=== PATIENT | female | born 1990 | race Caucasian/White ===

== ENCOUNTER 2020-08-14 18:47 | Inpatient (IN) | payer BC ==
[2020-08-14] MEDS ORDERED: Calcium Carbonate 500 MG Tab.Chew PO PRN (19:17)
[2020-08-14] MEDS ORDERED: Nalbuphine 10 MG/1 ML Vial IVPUSH PRN (19:17)
[2020-08-14] MEDS ORDERED: Sodium Chloride 0.9% 10 ML Syringe FLUSH PRN (19:17)
[2020-08-14] MEDS ORDERED: Lidocaine 1% 50 ML MDV INJECT ONE (19:17)
[2020-08-14] MEDS ORDERED: Ondansetron 4 MG/2 ML SDV IVPUSH PRN (19:17)
[2020-08-14] MEDS ORDERED: Sodium Chloride 0.9% 100 ML ONE (19:25)
[2020-08-14] MEDS ORDERED: Ampicillin 2 GM AdvVial IV ONE (19:25)
[2020-08-14] MEDS ORDERED: Oxytocin/Lactated Ringers 10 UNIT/1,000 ML BAG IV SCH ×2 (19:30)
[2020-08-14] MEDS ORDERED: fentaNYL 100 MCG/2 ML SDV EPIDUR PRN (19:48)
[2020-08-14] MEDS ORDERED: Bupivacaine/fentaNYL/NS 100 ML Bag EPIDUR PRN (19:48)
[2020-08-14] MEDS ORDERED: ePHEDrine 50 MG/ML SDV IVPUSH PRN (19:48)
[2020-08-14] MEDS ORDERED: diphenhydrAMINE 50 MG/ML SDV IVPUSH PRN (19:48)
[2020-08-14] MEDS ORDERED: Ampicillin 2 GM in Sodium Chloride 0.9% 100 ML IV ONE (20:00)
[2020-08-14] MEDS: Lactated Ringers 1,000 ML IV SCH ×4 (21:28→22:09)
--- NOTE | 2020-08-14 22:02 | PCM.PREANE ---
Preanesthetic Assessment - Procedure Proposed Procedure: epidural - Anesthesia/Transfusion/Family Hx Anesthesia History: Prior Anesthesia Without Reaction Family History of Anesthesia Reaction: No Transfusion History: Unknown - Review of Systems General: Fatigue, Malaise Pulmonary: No Symptoms Cardiovascular: No Symptoms Gastrointestinal: Abdominal Pain (labor) Neurological: No Symptoms Other: Reports: None - Physical Assessment Height: 1.7 m Weight: 81.76 kg ASA Class: 2 Mental Status: Alert & Oriented x3 Airway Class: Mallampati = 2 Dentition: Reports: Normal Dentition Thyro-Mental Finger Breadths: 3 Mouth Opening Finger Breadths: 3 ROM/Head Extension: Full Lungs: Clear to Auscultation, Normal Respiratory Effort Cardiovascular: Regular Rate, Regular Rhythm - Lab Values: Laboratory Last Values WBC 16.85 K/mm3 (3.98-10.04) H 08/14/20 19:30 RBC 4.67 M/mm3 (3.98-5.22) 08/14/20 19:30 Hgb 13.6 gm/dl (11.2-15.7) 08/14/20 19:30 Hct 40.6 % (34.1-44.9) 08/14/20 19:30 MCV 86.9 fl (79.4-94.8) 08/14/20 19:30 MCH 29.1 pg (25.6-32.2) 08/14/20 19:30 MCHC 33.5 g/dl (32.2-35.5) 08/14/20 19:30 RDW Std Deviation 47.8 fL (36.4-46.3) H 08/14/20 19:30 Plt Count 273 K/mm3 (182-369) 08/14/20 19:30 MPV 10.7 fl (9.4-12.3) 08/14/20 19:30 Neut % (Auto) 74.4 % (34.0-71.1) H 08/14/20 19:30 Lymph % (Auto) 17.2 % (19.3-51.7) L 08/14/20 19:30 [place] % (Auto) 7.8 % (4.7-12.5) 08/14/20 19:30 Eos % (Auto) 0.5 (0.7-5.8) L 08/14/20 19:30 Baso % (Auto) 0.1 % (0.1-1.2) 08/14/20 19:30 Neut # (Auto) 12.53 K/mm3 (1.56-6.13) H 08/14/20 19:30 Lymph # (Auto) 2.90 K/mm3 (1.18-3.74) 08/14/20 19:30 [place] # (Auto) 1.31 K/mm3 (0.24-0.36) H 08/14/20 19:30 Eos # (Auto) 0.09 K/mm3 (0.04-0.36) 08/14/20 19:30 Baso # (Auto) 0.02 K/mm3 (0.01-0.08) 08/14/20 19:30 Manual Slide Review Normal smear 08/14/20 19:30 - Allergies Allergies/Adverse Reactions: Allergies Allergy/AdvReac Type Severity Reaction Status Date / Time No Known Allergies Allergy Verified 08/14/20 19:39 - Anesthesia Plan Pre-Op Medication Ordered: None - Acknowledgements Anesthesia Type Planned: Epidural Pt an Appropriate Candidate for the Planned Anesthesia: Yes Alternatives and Risks of Anesthesia Discussed w Pt/Guardian: Yes Pt/Guardian Understands and Agrees with Anesthesia Plan: Yes PreAnesthesia Questionnaire Gastrointestinal History: Reports: GERD - CURRENT (IN HOUSE) MEDS Current Meds: Current Medications Calcium Carbonate/Glycine (Calcium Carbonate 500 Mg Tab.Chew) 1,000 mg PO Q2H PRN PRN Reason: Indigestion Diphenhydramine HCl (Diphenhydramine 50 Mg/Ml Sdv) 25 mg IVPUSH Q6H PRN PRN Reason: pruritis Ephedrine Sulfate (Ephedrine 50 Mg/Ml Sdv) 5 mg IVPUSH ASDIRECTED PRN PRN Reason: Hypotension Fentanyl (Fentanyl 100 Mcg/2 Ml Sdv) 100 mcg EPIDUR Q3H PRN PRN Reason: Pain Last Admin: 08/14/20 21:45 Dose: 100 mcg Documented by: Fentanyl/Bupivacaine HCl (Bupivacaine/Fentanyl/Ns 100 Ml Bag) 100 ml EPIDUR ASDIRECTED PRN PRN Reason: Pain Last Admin: 08/14/20 21:45 Dose: 100 ml Documented by: Lactated Ringer's (Ringers, Lactated) 1,000 mls @ 100 mls/hr IV ASDIRECTED HAIDER Last Admin: 08/14/20 21:30 Dose: 100 mls/hr Documented by: Ampicillin Sodium 1 gm/ Sodium (Chloride) 100 mls @ 200 mls/hr IV Q4H HAIDER Oxytocin/Lactated Ringer's (Pitocin In Lr 10 Units/1,000 Ml) 10 unit in 1,000 mls @ 12 mls/hr IV TITRATE HAIDER; Protocol Oxytocin/Lactated Ringer's (Pitocin In Lr 10 Units/1,000 Ml) 10 unit in 1,000 mls @ 500 mls/hr IV .CONTINUOUS HAIDER Nalbuphine HCl (Nalbuphine 10 Mg/1 Ml Vial) 10 mg IVPUSH Q2H PRN PRN Reason: Pain Ondansetron HCl (Ondansetron 4 Mg/2 Ml Sdv) 4 mg IVPUSH Q4H PRN PRN Reason: Nausea/Vomiting Sodium Chloride (Sodium Chloride 0.9% 10 Ml Syringe) 10 ml FLUSH ASDIRECTED PRN PRN Reason: Keep Vein Open Discontinued Medications Ampicillin Sodium (Ampicillin 2 Gm Advvial) Confirm Administered Dose 2 gm IV .STK-MED ONE Stop: 08/14/20 19:26 Ampicillin Sodium 2 gm/ Sodium (Chloride) 100 mls @ 200 mls/hr IV ONETIME ONE Stop: 08/14/20 20:29 Last Admin: 08/14/20 21:31 Dose: 200 mls/hr Documented by: Sodium Chloride (Normal Saline) Confirm Administered Dose 100 mls @ as directed .ROUTE .STK-MED ONE Stop: 08/14/20 19:26 Lidocaine HCl (Lidocaine 1% 50 Ml Mdv) 20 ml INJECT ONETIME ONE Stop: 08/14/20 19:18
--- NOTE | 2020-08-14 22:08 | PCM.LDHP ---
L&D History of Present Illness - General Date of Service: 08/14/20 Admit Problem/Dx: Patient Status Order with Admit Dx/Problem 08/14/20 19:03 Patient Status [ADT] Routine 08/14/20 19:18 Patient Status [ADT] Routine Admission Diagnosis/Problem Admission Diagnosis/Problem Active labor - History of Present Illness Introduction:: 30 year old here in active labor. Presented with painful contractions. Cervix 4-[address] Hong complicated by GBS positive, COVID in March. Pain Score: 10 - Related Data Allergies/Adverse Reactions: Allergies Allergy/AdvReac Type Severity Reaction Status Date / Time No Known Allergies Allergy Verified 08/14/20 19:39 Past Medical History Gastrointestinal History: Reports: GERD H&P Review of Systems - Review of Systems: Review Of Systems: See Below General: Reports: No Symptoms HEENT: Reports: No Symptoms Pulmonary: Reports: No Symptoms Cardiovascular: Reports: No Symptoms Gastrointestinal: Reports: No Symptoms Genitourinary: Reports: No Symptoms Musculoskeletal: Reports: No Symptoms Skin: Reports: No Symptoms Psychiatric: Reports: No Symptoms Neurological: Reports: No Symptoms Hematologic/Lymphatic: Reports: No Symptoms Immunologic: Reports: No Symptoms L&D Exam - Exam Exam: See Below - Vital Signs Weight: 81.76 kg - OB Specific Contraction Intensity: Moderate Movement: Active Heart Tones: Present Heart Rate (FHR) Variability: Moderate (6-25 bmp) Presentation: Vertex - Celeste Score Celeste Score Cervix Position: Midposition Celeste Score Consistency: Medium Celeste Score Effacement: 51-70% Celeste Score Dilation: 3-4 cm Celeste Score 's Station: -2 Celeste Score Total: 7 - Exam General: Alert, Oriented HEENT: PERRLA, Conjunctiva Clear, EACs Clear, EOMI, Hearing Intact, Mucosa Moist & [place], Nares Patent, Normal Nasal Septum, Posterior Pharynx Clear, TMs Clear Neck: Supple, Trachea Midline Lungs: Clear to Auscultation, Normal Respiratory Effort Cardiovascular: Regular Rate, Regular Rhythm GI/Abdominal Exam: Normal Bowel Sounds, Soft, Non-Tender, No Organomegaly, No Distention, No Abnormal Bruit, No Mass, Pelvis Stable Rectal Exam: Normal Exam Back Exam: Normal Inspection, Full Range of Motion Extremities: Normal Inspection, Normal Range of Motion, Non-Tender, No Pedal Edema, Normal Capillary Refill Skin: Warm, Dry, Intact Neurological: Cranial Nerves Intact, Reflexes Equal Bilateral Psychiatric: Alert, Normal Affect, Normal Mood - Patient Data Lab Results Last 24 hrs: Laboratory Results - last 24 hr 08/14/20 Range/Units 19:30 WBC 16.85 H (3.98-10.04) K/mm3 RBC 4.67 (3.98-5.22) M/mm3 Hgb 13.6 (11.2-15.7) gm/dl Hct 40.6 (34.1-44.9) % MCV 86.9 (79.4-94.8) fl MCH 29.1 (25.6-32.2) pg MCHC 33.5 (32.2-35.5) g/dl RDW Std Deviation 47.8 H (36.4-46.3) fL Plt Count 273 (182-369) K/mm3 MPV 10.7 (9.4-12.3) fl Neut % (Auto) 74.4 H (34.0-71.1) % Lymph % (Auto) 17.2 L (19.3-51.7) % [place] % (Auto) 7.8 (4.7-12.5) % Eos % (Auto) 0.5 L (0.7-5.8) Baso % (Auto) 0.1 (0.1-1.2) % Neut # (Auto) 12.53 H (1.56-6.13) K/mm3 Lymph # (Auto) 2.90 (1.18-3.74) K/mm3 [place] # (Auto) 1.31 H (0.24-0.36) K/mm3 Eos # (Auto) 0.09 (0.04-0.36) K/mm3 Baso # (Auto) 0.02 (0.01-0.08) K/mm3 Manual Slide Review Normal smear Result Diagrams: 08/14/20 19:30 Problem List Initiated/Reviewed/Updated: Yes Orders Last 24hrs: Active Orders 24 hr Category Date Time Status Patient Status [ADT] Routine ADT 08/14/20 19:18 Active Activity as Tolerated [RC] PFP Care 08/14/20 19:17 Active Communication Order [RC] ASDIRECTED Care 08/14/20 19:17 Active Communication Order [RC] ASDIRECTED Care 08/14/20 19:49 Active Cooling Warming Measures [RC] ASDIRECTED Care 08/14/20 19:49 Active Heart Tones [RC] ASDIRECTED Care 08/14/20 19:18 Active Non Stress Test [RC] PER UNIT ROUTINE Care 08/14/20 19:03 Active Notify Provider [RC] ASDIRECTED Care 08/14/20 19:48 Active Notify Provider [RC] ASDIRECTED Care 08/14/20 19:49 Active Notify Provider [RC] PFP Care 08/14/20 19:17 Active Notify Provider [RC] PRN Care 08/14/20 19:17 Active Oxygen Therapy [RC] ASDIRECTED Care 08/14/20 19:49 Active Peripheral IV Care [RC] . DIRECTED Care 08/14/20 19:18 Active Pulse Oximetry [RC] ASDIRECTED Care 08/14/20 19:49 Active Pump Management, Intrathecal [RC] ASDIRECTED Care 08/14/20 19:19 Active Urinary Catheter Assessment [RC] ASDIRECTED Care 08/14/20 19:17 Active Vital Signs [RC] PER UNIT ROUTINE Care 08/14/20 19:03 Active Vital Signs [RC] Q1H Care 08/14/20 19:49 Active Regular Diet [DIET] Diet 08/14/20 Dinner Active BLOOD BANK HOLD SPECIMEN [BBK] Stat Lab 08/14/20 19:30 Received CORONAVIRUS COVID-19 ELADIA [MOLEC] Stat Lab 08/14/20 19:20 Ordered HEP C VIRUS AB [REF] Stat Lab 08/14/20 19:30 Received RAPID PLASMA REAGIN,RPR [CHEM] Stat Lab 08/14/20 19:30 Received Ampicillin 1 gm Med 08/15/20 00:00 Active Sodium Chloride 0.9% [Normal Saline] 100 ml IV Q4H Bupivacaine/fentaNYL/NS [fentaNYL/Bupivacaine/NS 2 MCG- Med 08/14/20 19:48 Active 0.125% 100 ML] 100 ml EPIDUR ASDIRECTED PRN Calcium Carbonate [Tums] Med 08/14/20 19:17 Active 1,000 mg PO Q2H PRN Lactated Ringers [Ringers, Lactated] 1,000 ml Med 08/14/20 19:30 Active IV ASDIRECTED Nalbuphine [Nubain] Med 08/14/20 19:17 Active 10 mg IVPUSH Q2H PRN Ondansetron [Zofran] Med 08/14/20 19:17 Active 4 mg IVPUSH Q4H PRN Oxytocin/Lactated Ringers [Pitocin in LR 10 Units/1,000 Med 08/14/20 19:30 Active ML] 10 unit in 1,000 ml IV .CONTINUOUS Oxytocin/Lactated Ringers [Pitocin in LR 10 Units/1,000 Med 08/14/20 19:30 Active ML] 10 unit in 1,000 ml IV TITRATE Sodium Chloride 0.9% [Saline Flush] Med 08/14/20 19:17 Active 10 ml FLUSH ASDIRECTED PRN diphenhydrAMINE [Benadryl] Med 08/14/20 19:48 Active 25 mg IVPUSH Q6H PRN ePHEDrine [ePHEDrine sulfate] Med 08/14/20 19:48 Active 5 mg IVPUSH ASDIRECTED PRN fentaNYL [Sublimaze] Med 08/14/20 19:48 Active 100 mcg EPIDUR Q3H PRN Electronic Heart Tones Ext w TOCO [WOMSER] Oth 08/14/20 19:17 Ordered Routine Electronic Heart Tones Internal [WOMSER] Per Unit Oth 08/14/20 19:17 Ordered Routine Peripheral IV Insertion Adult [OM.PC] Routine Oth 08/14/20 19:17 Ordered Resuscitation Status Routine Resus Stat 08/14/20 19:03 Ordered Medication Orders Calcium Carbonate/Glycine (Calcium Carbonate 500 Mg Tab.Chew) 1,000 mg PO Q2H PRN PRN Reason: Indigestion Diphenhydramine HCl (Diphenhydramine 50 Mg/Ml Sdv) 25 mg IVPUSH Q6H PRN PRN Reason: pruritis Ephedrine Sulfate (Ephedrine 50 Mg/Ml Sdv) 5 mg IVPUSH ASDIRECTED PRN PRN Reason: Hypotension Fentanyl (Fentanyl 100 Mcg/2 Ml Sdv) 100 mcg EPIDUR Q3H PRN PRN Reason: Pain Last Admin: 08/14/20 21:45 Dose: 100 mcg Documented by: TIFFANY Fentanyl/Bupivacaine HCl (Bupivacaine/Fentanyl/Ns 100 Ml Bag) 100 ml EPIDUR ASDIRECTED PRN PRN Reason: Pain Last Admin: 08/14/20 21:45 Dose: 100 ml Documented by: TIFFANY Lactated Ringer's (Ringers, Lactated) 1,000 mls @ 100 mls/hr IV ASDIRECTED HAIDER Last Admin: 08/14/20 21:30 Dose: 100 mls/hr Documented by: Infusion: 08/14/20 21:30 Dose: 100 mls/hr Documented by: Admin: 08/14/20 21:29 Dose: 100 mls/hr Documented by: Infusion: 08/14/20 21:29 Dose: 100 mls/hr Documented by: Admin: 08/14/20 21:28 Dose: 100 mls/hr Documented by: TIFFANY Ampicillin Sodium 1 gm/ Sodium (Chloride) 100 mls @ 200 mls/hr IV Q4H HAIDER Oxytocin/Lactated Ringer's (Pitocin In Lr 10 Units/1,000 Ml) 10 unit in 1,000 mls @ 12 mls/hr IV TITRATE HAIDER; Protocol Oxytocin/Lactated Ringer's (Pitocin In Lr 10 Units/1,000 Ml) 10 unit in 1,000 mls @ 500 mls/hr IV .CONTINUOUS HAIDER Nalbuphine HCl (Nalbuphine 10 Mg/1 Ml Vial) 10 mg IVPUSH Q2H PRN PRN Reason: Pain Ondansetron HCl (Ondansetron 4 Mg/2 Ml Sdv) 4 mg IVPUSH Q4H PRN PRN Reason: Nausea/Vomiting Sodium Chloride (Sodium Chloride 0.9% 10 Ml Syringe) 10 ml FLUSH ASDIRECTED PRN PRN Reason: Keep Vein Open Assessment/Plan Comment:: Term labor. Desires epidural Anticipate . Antibiotics.
[2020-08-15] MEDS ORDERED: Ampicillin 1 GM in Sodium Chloride 0.9% 100 ML IV SCH ×2
--- NOTE | 2020-08-15 01:08 | PCM.SN.2 ---
- Free Text/Narrative Note: Stage I - Patient presented in active labor. Progressed to complete with epidural anesthesia, ampicillin and overall reassuring heart tones. Stage II - of viable male, weight 3710g, 8/9 APGARS at 0048. Head delivered in controlled manner over intact perineum, body and shoulders atraumatically. To maternal abdomen. Cord clamped and cut. Positive cry. Stage III - of intact placenta. 3vc. Small periureteral lacerations repaired with 3-0 vicryl. EBL 200
[2020-08-15] MEDS ORDERED: Benzocaine/Menthol 20%-0.5% Spray 56 GM Canister TOP PRN (01:47)
[2020-08-15] MEDS ORDERED: Acetaminophen/oxyCODONE 325-5 MG Tab PO PRN ×2 (01:47)
[2020-08-15] MEDS ORDERED: Docusate Sodium 100 MG Cap PO PRN (01:47)
[2020-08-15] MEDS ORDERED: Witch Hazel Medicated Pads 40/Jar TOP PRN (01:47)
[2020-08-15] MEDS: Ibuprofen 600 MG Tab PO PRN ×3 (03:06→19:14)
[2020-08-15] MEDS ORDERED: Bupivacaine 0.25% 10 ML SDV ONE (06:00)
[2020-08-15] MEDS ORDERED: ePHEDrine 50 MG/ML SDV ONE (06:00)
--- NOTE | 2020-08-15 07:31 | PCM48HPAN ---
Post Anesthesia Note - EVALUATION WITHIN 48HRS OF ANESTHETIC Vital Signs in Normal Range: Yes Patient Participated in Evaluation: Yes Respiratory Function Stable: Yes Airway Patent: Yes Cardiovascular Function Stable: Yes Hydration Status Stable: Yes Pain Control Satisfactory: Yes Nausea and Vomiting Control Satisfactory: Yes Mental Status Recovered: Yes Vital Signs: Last Vital Signs Temp 98.3 F 08/14/20 19:03 Pulse 93 08/14/20 19:03 Resp 16 08/14/20 19:03 BP 117/73 08/14/20 19:03 Pulse Ox 99 08/14/20 19:03
--- NOTE | 2020-08-16 08:27 | PCM.SN.2 ---
- Free Text/Narrative Note: Post Progress Note PPD #1 Subjective: Doing well overall. Ambulating without difficulty. Lochia minimal. Voiding without difficulty. Tolerating regular diet without nausea or vomiting. Pain minimal and controlled with oral medications. Breast-feeding with minimal difficulty. Objective: Vitals: Vital Signs - 24 hr 08/15/20 08/15/20 08/15/20 08:55 14:22 19:51 Temperature 36.4 C 36.7 C 36.7 C Pulse, 96 100 86 Peripheral Respiratory 14 14 14 Rate Blood Pressure 105/67 113/73 102/73 O2 Sat by Pulse 98 99 98 Oximetry 08/16/20 04:08 Temperature 36.3 C Pulse, 85 Peripheral Respiratory 14 Rate Blood Pressure 94/59 L O2 Sat by Pulse 97 Oximetry Physical Exam General: Alert and oriented, no acute distress Lungs: Clear to auscultation bilaterally Heart: Regular rate and rhythm Abdomen: Soft, minimal appropriate tenderness, non-distended, fundus midline, nontender, and at the umbilicus Extremities: No edema ASSESSMENT: 30-year-old female -0-0-2 s/p normal vaginal delivery PPD #1, complicated by GBS positive status and received 2 doses of antibiotics prior to delivery PLAN: Doing well Breast-feeding with minimal difficulty. Assist as needed Lochia minimal. Continue to monitor for appropriate lochia. Continue routine care Anticipate discharge home today William Montero MD 8:27 AM 08/16/2020
--- NOTE | 2020-08-16 08:33 | PCM.DCSUM1 ---
Discharge Summary - Hospital Course Free Text/Narrative:: Stage I - Patient presented in active labor. Progressed to complete with epidural anesthesia, ampicillin and overall reassuring heart tones. Stage II - of viable male, weight 3710g, 8/9 APGARS at 0048. Head delivered in controlled manner over intact perineum, body and shoulders atraumatically. To maternal abdomen. Cord clamped and cut. Positive cry. Stage III - of intact placenta. 3vc. Small periureteral lacerations repaired with 3-0 vicryl. EBL 200 Diagnosis: Stroke: No - Discharge Data Discharge Date: 08/16/20 Discharge Disposition: Home, Self-Care 01 Condition: Good - Referral to Home Health Primary Care Physician: Karina Ng MD - Discharge Diagnosis/Problem(s) (1) Vaginal delivery SNOMED Code(s): 000979015 ICD Code: O80 - ENCOUNTER FOR FULL-TERM UNCOMPLICATED DELIVERY Status: Acute Current Visit: Yes (2) GBS (group B Streptococcus carrier), +RV culture, currently SNOMED Code(s): 8043582439199, [id number], 0557195088732 ICD Code: O99.820 - STREPTOCOCCUS B CARRIER STATE COMPLICATING Status: Acute Current Visit: Yes (3) First degree perineal laceration during delivery SNOMED Code(s): 032170685 ICD Code: O70.0 - FIRST DEGREE PERINEAL LACERATION DURING DELIVERY Status: Acute Current Visit: Yes (4) 39 weeks gestation of SNOMED Code(s): 87780429 ICD Code: Z3A.39 - 39 WEEKS GESTATION OF Status: Acute Current Visit: Yes - Patient Summary/Data Complications: None Consults: None Hospital Course: Ester Leo was admitted for active labor. On admission her cervix was dilated to 4-5 cm. She was GBS positive and started on ampicillin for GBS prophylaxis. She received a total of 2 doses prior to delivery. She was given an epidural for anesthesia. She had spontaneous rupture of membranes with clear fluid. She progressed to complete and began pushing. On 08/15/2020 she had a normal vaginal delivery of a live male at 00:48. Apgars of 8 and 9. Weight of 3710 g (8 pounds 2.9 ounces). Her course was uneventful. Her pain was well controlled and she had minimal lochia. She was ambulating, tolerating a regular diet and voiding normally. She was breast-feeding with minimal difficulty. She was afebrile and her hematocrit was 40.6 on admission. She desired to be discharged home on the morning of PPD #1. Her blood type is A+. - Patient Instructions Diet: Regular Diet as Tolerated Activity: Apply Ice, As Tolerated Activity, Other: Nothing in the vagina for 6 weeks Driving: May Drive Today Showering/Bathing: May Shower Notify Provider of: Fever, Increased Pain, Swelling and Redness, Drainage, Nausea and/or Vomiting Other/Special Instructions: Please contact your physician's office if you have heavy vaginal bleeding enough to soak a pad in less than an hour for several hours. Monitor for any signs of an infection in the breasts with severe pain or redness of the breast. - Discharge Plan *PRESCRIPTION DRUG MONITORING PROGRAM REVIEWED*: Not Applicable *COPY OF PRESCRIPTION DRUG MONITORING REPORT IN PATIENT OPAL: Not Applicable Prescriptions/Med Rec: Acetaminophen [Tylenol] 650 mg PO Q6H PRN #60 tablet PRN Reason: Pain Home Medications: Home Meds Acetaminophen [Tylenol] 650 mg PO Q6H PRN #60 tablet 08/16/20 [Rx] Benzocaine/Menthol [Dermoplast Pain Relief [place]] 1 spray TOP ASDIRECTED PRN canister 08/16/20 [Rx] Docusate Sodium [Colace] 100 mg PO BID PRN cap 08/16/20 [Rx] Ibuprofen [Motrin] 600 mg PO Q6H PRN tablet 08/16/20 [Rx] witch Lizzette [Tucks] 1 pad TOP ASDIRECTED PRN pad 08/16/20 [Rx] Patient Handouts: and Self-Care, Care of a Perineal Tear, Care After Vaginal Delivery Referrals: Benito Hong MD [Physician] - (Follow-up in 2 to 3 weeks for routine visit or earlier as needed.) - Discharge Summary/Plan Comment DC Time >30 min.: No - Patient Data Vitals - Most Recent: Last Vital Signs Temp 36.3 C 08/16/20 04:08 Pulse 85 08/16/20 04:08 Resp 14 08/16/20 04:08 BP 94/59 L 08/16/20 04:08 Pulse Ox 97 08/16/20 04:08 Weight - Most Recent: 81.647 kg I&O - Last 24 hours: Intake & Output 08/15/20 08/16/20 08/16/20 22:59 06:59 14:59 Intake Total 480 Balance 480 Med Orders - Current: Current Medications Benzocaine/Menthol (Benzocaine/Menthol 20%-0.5% [place] 56 Gm Canister) 0 gm TOP ASDIRECTED PRN PRN Reason: Perineal Comfort Measure Last Admin: 08/15/20 03:05 Dose: 1 canister Documented by: Docusate Sodium (Docusate Sodium 100 Mg Cap) 100 mg PO BID PRN PRN Reason: Constipation Last Admin: 08/15/20 03:06 Dose: 100 mg Documented by: Ibuprofen (Ibuprofen 600 Mg Tab) 600 mg PO Q6H PRN PRN Reason: Mild pain or fever Last Admin: 08/15/20 19:14 Dose: 600 mg Documented by: Oxycodone/Acetaminophen (Acetaminophen/Oxycodone 325-5 Mg Tab) 1 tab PO Q4H PRN PRN Reason: Pain (moderate 4-6) Oxycodone/Acetaminophen (Acetaminophen/Oxycodone 325-5 Mg Tab) 2 tab PO Q4H PRN PRN Reason: Pain (severe 7-10) Witch Lizzette (Witch Lizzette Medicated Pads 40/Jar) 1 pad TOP ASDIRECTED PRN PRN Reason: Perineal Comfort Measure Last Admin: 08/15/20 03:05 Dose: 1 tub Documented by: Discontinued Medications Ampicillin Sodium (Ampicillin 2 Gm Advvial) Confirm Administered Dose 2 gm IV .STK-MED ONE Stop: 08/14/20 19:26 Last Admin: 08/15/20 18:18 Dose: Not Given Documented by: Bupivacaine HCl (Bupivacaine 0.25% 10 Ml Sdv) 10 ml .ROUTE .STK-MED ONE Stop: 08/15/20 06:01 Calcium Carbonate/Glycine (Calcium Carbonate 500 Mg Tab.Chew) 1,000 mg PO Q2H PRN PRN Reason: Indigestion Diphenhydramine HCl (Diphenhydramine 50 Mg/Ml Sdv) 25 mg IVPUSH Q6H PRN PRN Reason: pruritis Ephedrine Sulfate (Ephedrine 50 Mg/Ml Sdv) 5 mg IVPUSH ASDIRECTED PRN PRN Reason: Hypotension Last Admin: 08/14/20 22:10 Dose: 5 mg Documented by: Ephedrine Sulfate (Ephedrine 50 Mg/Ml Sdv) 50 mg .ROUTE .STK-MED ONE Stop: 08/15/20 06:01 Fentanyl (Fentanyl 100 Mcg/2 Ml Sdv) 100 mcg EPIDUR Q3H PRN PRN Reason: Pain Last Admin: 08/14/20 21:45 Dose: 100 mcg Documented by: Fentanyl/Bupivacaine HCl (Bupivacaine/Fentanyl/Ns 100 Ml Bag) 100 ml EPIDUR ASDIRECTED PRN PRN Reason: Pain Last Admin: 08/14/20 21:45 Dose: 100 ml Documented by: Lactated Ringer's (Ringers, Lactated) 1,000 mls @ 100 mls/hr IV ASDIRECTED HAIDER Last Admin: 08/14/20 22:09 Dose: 100 mls/hr Documented by: Ampicillin Sodium 2 gm/ Sodium (Chloride) 100 mls @ 200 mls/hr IV ONETIME ONE Stop: 08/14/20 20:29 Last Admin: 08/14/20 21:31 Dose: 200 mls/hr Documented by: Ampicillin Sodium 1 gm/ Sodium (Chloride) 100 mls @ 200 mls/hr IV Q4H HAIDER Last Admin: 08/14/20 23:07 Dose: 200 mls/hr Documented by: Oxytocin/Lactated Ringer's (Pitocin In Lr 10 Units/1,000 Ml) 10 unit in 1,000 mls @ 12 mls/hr IV TITRATE HAIDER; Protocol Oxytocin/Lactated Ringer's (Pitocin In Lr 10 Units/1,000 Ml) 10 unit in 1,000 mls @ 500 mls/hr IV .CONTINUOUS HAIDER Last Admin: 08/15/20 03:09 Dose: 500 mls/hr Documented by: Sodium Chloride (Normal Saline) Confirm Administered Dose 100 mls @ as directed .ROUTE .STK-MED ONE Stop: 08/14/20 19:26 Last Admin: 08/15/20 18:19 Dose: Not Given Documented by: Lidocaine HCl (Lidocaine 1% 50 Ml Mdv) 20 ml INJECT ONETIME ONE Stop: 08/14/20 19:18 Last Admin: 08/15/20 18:18 Dose: Not Given Documented by: Nalbuphine HCl (Nalbuphine 10 Mg/1 Ml Vial) 10 mg IVPUSH Q2H PRN PRN Reason: Pain Ondansetron HCl (Ondansetron 4 Mg/2 Ml Sdv) 4 mg IVPUSH Q4H PRN PRN Reason: Nausea/Vomiting Sodium Chloride (Sodium Chloride 0.9% 10 Ml Syringe) 10 ml FLUSH ASDIRECTED PRN PRN Reason: Keep Vein Open
[2020-08-16] MEDS: Ibuprofen 600 MG Tab PO PRN (10:20)
== END 2020-08-16 11:55 | disposition home or self-care (01) | DRG 560 ==
LOC: JD.OBCHECK 18:47 → JD.OB 18:52 → JD.OBCHECK 19:18 → OBSVTOIN 08-15 00:48 → JD.OB 08-15 00:49
PROVIDERS: ADMIT Obstetrics & Gynecology; ATTEND Obstetrics & Gynecology
PROC: 10E0XZZ Delivery of Products of Conception, External Approach (ICD-10-PCS; principal; 2020-08-15)
PROC: 0UQMXZZ Repair Vulva, External Approach (ICD-10-PCS; 2020-08-15)
DX: O99.824 Streptococcus B carrier state complicating childbirth (principal); Z3A.39 39 weeks gestation of pregnancy; Z37.0 Single live birth; O71.82 Other specified trauma to perineum and vulva; Z86.16 Personal history of COVID-19; O99.62 Diseases of the digestive system complicating childbirth; K21.9 Gastro-esophageal reflux disease without esophagitis; Z20.822 Contact with and (suspected) exposure to COVID-19
CPT/HCPCS: 01967; 36415; 51702; 59025; 59409; 85025; 86592; 86803; A9270-GY; J0290; J2590; J3010; J3490; J7120; U0002

== ENCOUNTER 2023-10-05 06:49 | Inpatient (IN) | payer BC ==
[~2023-10-05 06:49] MED LIST: Bupivacaine 0.25% 10 ML SDV ONE
[2023-10-05] MEDS ORDERED: Lidocaine 1% 50 ML MDV INJECT PRN (07:05)
[2023-10-05] MEDS ORDERED: Ondansetron 4 MG/2 ML SDV IVPUSH PRN (07:05)
[2023-10-05] MEDS ORDERED: Sodium Chloride 0.9% 10 ML Syringe FLUSH PRN (07:05)
[2023-10-05] MEDS ORDERED: Oxytocin/Lactated Ringers 30 UNIT/500 ML BAG IV SCH (07:15)
[2023-10-05 07:31] LABS: BASOPHILS PERCENT AUTO 0.2 % (0.0-1.0); EOSINOPHILS ABSOLUTE AUTO 0.1 K/mm3 (0.0-0.4); EOSINOPHILS PERCENT AUTO 0.7 % (0.0-6.0); HEMATOCRIT 38.6 % (37.0-47.0); HEMOGLOBIN 12.6 gm/dl (12.0-16.0); IMMATURE GRAN PERCENT AUTO 0.9 % (0.0-0.4); LYMPHOCYTES PERCENT AUTO 18.1 % (24.0-44.0); MEAN CORPUSCULAR HEMOGLOBIN 28.2 pg (28.0-32.0); MEAN CORPUSCULAR HGB CONC 32.6 g/dl (32.0-36.0); MEAN CORPUSCULAR VOLUME 86.4 fl (83.0-99.0); MONOCYTES ABSOLUTE AUTO 0.8 K/mm3 (0.0-0.8); MONOCYTES PERCENT AUTO 7.2 % (0.0-8.0); NEUTROPHILS ABSOLUTE AUTO 8.2 K/mm3 (1.8-7.7); NEUTROPHILS PERCENT AUTO 72.9 % (41.0-71.0); PLATELET COUNT,PLT 208 K/mm3 (150-400); RED BLOOD CELL COUNT 4.47 M/mm3 (4.10-5.30); WHITE BLOOD CELL COUNT,WBC 11.17 K/mm3 (3.9-11.3)
[2023-10-05] MEDS: Ampicillin 2 GM in Sodium Chloride 0.9% 100 ML IV ONE (07:32)
[2023-10-05] MEDS: Lactated Ringers 1,000 ML IV SCH (07:32)
[2023-10-05] MEDS: Oxytocin/Lactated Ringers 30 UNIT/500 ML BAG IV SCH (08:16)
[2023-10-05] MEDS ORDERED: Sodium Chloride 0.9% 10 ML Syringe FLUSH SCH (09:00)
[2023-10-05] MEDS: Ampicillin 1 GM in Sodium Chloride 0.9% 100 ML IV SCH (11:29)
[2023-10-05] MEDS: Nalbuphine 10 MG/ML Syringe IVPUSH PRN (16:43)
[2023-10-05] MEDS ORDERED: ePHEDrine 50 MG/ML SDV IVPUSH PRN (17:42)
[2023-10-05] MEDS ORDERED: diphenhydrAMINE 50 MG/ML SDV IVPUSH PRN (17:42)
[2023-10-05] MEDS: fentaNYL 100 MCG/2 ML SDV EPIDUR PRN (17:47)
[2023-10-05] MEDS: Bupivacaine/fentaNYL/NS 100 ML Bag EPIDUR PRN (17:47)
[2023-10-06] MEDS ORDERED: Witch Hazel Medicated Pads 40/Jar TOP PRN (01:33)
[2023-10-06] MEDS ORDERED: Docusate Sodium 100 MG Cap PO PRN (01:33)
[2023-10-06] MEDS ORDERED: Benzocaine/Menthol 20%-0.5% Spray 78 GM Cannister TOP PRN (01:33)
[2023-10-06] MEDS: Acetaminophen 325 MG Tab PO PRN (03:26)
[2023-10-06] MEDS: Ibuprofen 600 MG Tab PO SCH ×2 (03:27→09:55)
== END 2023-10-06 20:35 | disposition home or self-care (01) | DRG 560 ==
LOC: JD.OB 06:49 → OBSVTOIN 20:09 → JD.OB 20:09
PROVIDERS: ADMIT Obstetrics & Gynecology; ATTEND Obstetrics & Gynecology
PROC: 10E0XZZ Delivery of Products of Conception, External Approach (ICD-10-PCS; principal; 2023-10-05)
PROC: 10907ZC Drainage of Amniotic Fluid, Therapeutic from Products of Conception, Via Natural or Artificial Opening (ICD-10-PCS; 2023-10-05)
PROC: 3E033VJ Introduction of Other Hormone into Peripheral Vein, Percutaneous Approach (ICD-10-PCS; 2023-10-05)
PROC: 3E0R3BZ Introduction of Anesthetic Agent into Spinal Canal, Percutaneous Approach (ICD-10-PCS; 2023-10-05)
PROC: 00HU33Z Insertion of Infusion Device into Spinal Canal, Percutaneous Approach (ICD-10-PCS; 2023-10-05)
DX: O99.824 Streptococcus B carrier state complicating childbirth (principal); O69.81X0 Labor and delivery complicated by cord around neck, without compression, not applicable or unspecified; Z37.0 Single live birth; Z3A.39 39 weeks gestation of pregnancy
CPT/HCPCS: 36415; 59025; 59409; 85025; 86592; 86850; 86900; 86901; A9270-GY; J0290; J0665; J2300; J3010; J3490; J7120; J7999